=== PATIENT | female | born 2000 | race Caucasian/White ===

== ENCOUNTER 2019-09-03 16:28 | Emergency (ER) | payer SELFPAY ==
[~2019-09-03] VITALS: Ht 176 cm; Wt 104.7 kg
[2019-09-03 16:40] VITALS: BP 137/59
--- NOTE | 2019-09-03 17:20 | NUR ---
unable to locate heart tones with hand held doppler. Notified Dr Akins.
--- NOTE | 2019-09-03 17:23 | NUR ---
Patient refused blood draw, stating if they could not get an ultrasound she did not want her blood drawn.
--- NOTE | 2019-09-03 17:24 | NUR ---
Patient and family left against medical advice at this time.
--- NOTE | 2019-09-03 17:45 | ED GU-Female ---
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 States is not having bleeding at this time, but had a large amount in the toilet. Is also having lower abdominal cramping. Has had a previous miscarriage. Nursing Sepsis Screen: No Definite Risk History of Present Illness Date Seen by Provider: Sep 03, 2019 Time Seen by Provider: 17:37 Initial Comments 27 year-old female history as above 2 para 0, first ended in a D and E Says last menstrual period was in April she is currently 14 weeks and 3 days she had voided and noticed a significant amount of blood in the toilet has not had further active vaginal bleeding but has had some cramping Allergies and Home Medications Allergies Coded Allergies: Sulfa (Sulfonamide Antibiotics) (Verified Allergy, Unknown, 09/03/19) amoxicillin (Verified Allergy, Unknown, 09/03/19) clavulanic acid (Verified Allergy, Unknown, 09/03/19) sulfamethoxazole (Verified Allergy, Unknown, 09/03/19) trimethoprim (Verified Allergy, Unknown, 09/03/19) Patient Home Medication List Home Medication List Reviewed: Yes Review of Systems Review of Systems Constitutional: No fever EENTM: no symptoms reported Respiratory: no symptoms reported Cardiovascular: no symptoms reported Gastrointestinal: other (some pelvic cramping) Genitourinary: denies dysuria; other (see HPI) : Yes Musculoskeletal: no symptoms reported Skin: no symptoms reported Past Lcfduwn-Ivgcob-Pzqvic Hx Patient Social History Recent Foreign Travel: No Contact w/Someone Who Travel: No Recent Infectious Disease Expo: No Physical Exam Vital Signs Vital Signs - First Documented 09/03/19 16:40 Temp 37.1 Pulse 85 Resp 16 B/P (MAP) 137/59 (85) Pulse Ox 85 Capillary Refill : Less Than 3 Seconds Height, Weight, BMI Height: '" Weight: lbs. oz. kg; 33.00 BMI Method: General Appearance: no apparent distress HEENT: PERRL/EOMI Neck: supple Cardiovascular: regular rate, rhythm Respiratory: normal breath sounds Gastrointestinal: non tender, soft Progress/Results/Core Measures Suspected Sepsis Recent Fever Within 48 Hours: No Infection Criteria Present: None New/Unexplained Altered Menta: No Sepsis Screen: No Definite Risk SIRS Temperature: Pulse: 85 Respiratory Rate: 16 Blood Pressure 137 /59 Mean: 85 Results/Orders My Orders Orders - SOFÍA OCASIO MD Heart Tones (09/03/19 16:51) Hcg,Quantitative (09/03/19 16:51) Cbc With Automated Diff (09/03/19 16:51) Abo Rh Type (09/03/19 16:51) Vital Signs/I&O 09/03/19 16:40 Temp 37.1 Pulse 85 Resp 16 B/P (MAP) 137/59 (85) Pulse Ox 85 Capillary Refill : Less Than 3 Seconds Blood Pressure Mean: 85 Diagnostic Imaging Comments Using a small portable device to check for heart tones the nurse was not able to locate any Formal sonography through radiology is not available at this time Small sono on wheels is in the department though I have not use this device before The fetus was visualized but cardiac activity was not identified with certainty At this point the patient and family opted to leave this facility and 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 Referrals: [facility] (PCP) Primary Care Physician SOFÍA OCASIO MD Sep 03, 2019 17:45
== END 2019-09-03 17:30 | disposition left against medical advice (07) ==
LOC: ER FS 16:30
DX: O20.0 Threatened abortion (principal); Z3A.14 14 weeks gestation of pregnancy; Z88.2 Allergy status to sulfonamides; Z88.0 Allergy status to penicillin; Z88.1 Allergy status to other antibiotic agents
CPT/HCPCS: 99282

== ENCOUNTER 2020-03-24 12:49 | Emergency (ER) | payer OTHER, BC ==
[~2020-03-24] VITALS: Ht 175.3 cm; Wt 90.9 kg
[2020-03-24 12:50] VITALS: BP 121/69
--- NOTE | 2020-03-24 13:02 | ED Lower Extremity ---
General Chief Complaint: Lower Extremity Stated Complaint: RT FOOT/ANKLE INJ Source: patient, RN/MD, RN notes reviewed Exam Limitations: no limitations History of Present Illness Date Seen by Provider: March 24, 2020 Time Seen by Provider: 12:50 Initial Comments This patient is a 20-year-old female who states that she stepped down a couple steps twisting her right ankle. Patient states it hurts to bear weight. No obvious signs of injury. We'll do medical evaluation treatment is needed Allergies and Home Medications Allergies Coded Allergies: Sulfa (Sulfonamide Antibiotics) (Verified Allergy, Unknown, 09/03/19) amoxicillin (Verified Allergy, Unknown, 09/03/19) clavulanic acid (Verified Allergy, Unknown, 09/03/19) sulfamethoxazole (Verified Allergy, Unknown, 09/03/19) trimethoprim (Verified Allergy, Unknown, 09/03/19) Patient Home Medication List Home Medication List Reviewed: Yes Review of Systems Constitutional: No no symptoms reported; see HPI; No chills, No diaphoresis, No dizziness, No fever, No malaise, No weakness, No weight gain, No weight loss, No other EENTM: No see HPI, No no symptoms reported, No ear discharge, No hearing loss, No ear pain, No blurred vision, No double vision, No eye pain, No tearing, No vision loss, No dental problems, No hoarseness, No mouth pain, No mouth swelling, No epistaxis, No nose congestion, No nose pain, No throat pain, No throat swelling, No other Respiratory: No no symptoms reported, No see HPI, No cough, No dyspnea on exertion, No hemoptysis, No orthopnea, No phlegm, No short of breath, No s tridor, No wheezing, No other Cardiovascular: No no symptoms reported, No see HPI, No chest pain, No edema, No Hx of Intervention, No palpitations, No syncope, No vascular heart diseas, No other Gastrointestinal: No RUQ, No LUQ, No RLQ, No LLQ, No no symptoms reported, No see HPI, No abdominal pain, No constipation, No diarrhea, No dysphagia, No hematemesis, No heartburn, No jaundice, No loss of appetite, No melena, No nausea, No vomiting, No other Musculoskeletal: No no symptoms reported; see HPI; No back pain, No gout; joint pain; No joint swelling, No muscle pain, No muscle stiffness, No muscle cramps, No muscle twitching, No muscle weakness, No neck pain, No other Past Yvalpeb-Kflpph-Dwgwkh Hx Patient Social History Alcohol Use: Denies Use Recreational Drug Use: No Smoking Status: Never a Smoker 2nd Hand Smoke Exposure: No Recent Foreign Travel: No Contact w/Someone Who Travel: No Recent Hopitalizations: No Physical Abuse: No Sexual Abuse: No Mistreated: No Fear: No Seasonal Allergies Seasonal Allergies: No Past Medical History Surgeries: Yes Adenoidectomy, Tonsillectomy Respiratory: No Cardiac: No Neurological: No Genitourinary: No Gastrointestinal: No Musculoskeletal: No Endocrine: No HEENT: No Cancer: No Psychosocial: No Integumentary: No Physical Exam Vital Signs Vital Signs - First Documented 03/24/20 12:50 Temp 36.3 Pulse 83 Resp 16 B/P (MAP) 121/69 (86) Pulse Ox 98 O2 Delivery Room Air Capillary Refill : Height, Weight, BMI Height: '" Weight: lbs. oz. kg; 33.00 BMI Method: General Appearance: WD/WN, no apparent distress HEENT: PERRL/EOMI, normal ENT inspection, TMs normal, pharynx normal Neck: non-tender, full range of motion, supple, normal inspection Cardiovascular: normal peripheral pulses, regular rate, rhythm, no edema, no gallop, no JVD, no murmur Respiratory: chest non-tender, lungs clear, normal breath sounds, no respiratory distress, no accessory muscle use Gastrointestinal: normal bowel sounds, non tender, soft, no organomegaly, no pulsatile mass Ankles: right ankle normal inspection, right ankle limited range of motion, right ankle pain Skin: normal color, warm/dry Progress/Results/Core Measures Results/Orders My Orders Orders - NÉSTOR SO MD Ankle 3 View Right (03/24/20 12:56) Foot 3 View Right (03/24/20 13:14) Vital Signs/I&O 03/24/20 12:50 Temp 36.3 Pulse 83 Resp 16 B/P (MAP) 121/69 (86) Pulse Ox 98 O2 Delivery Room Air Progress Progress Note : Time: 13:31 Progress Note Negative x-rays negative for acute findings. We'll offer the patient an air stirrup/Leroy wrap as needed. Patient needs encourage rest ice elevation compression. Follow-up with PCP in 2-3 days. We'll write patient prescription for diclofenac as needed. For pain Diagnostic Imaging Diagonstic Imaging: Xray Plain Films/CT/US/NM/MRI: ankle Comments Negative for any acute injuries. Reviewed: Reviewed by Me Departure Impression Primary Impression: Sprain and strain of ankle Disposition: HOME, SELF-CARE Condition: Stable Departure-Patient Inst. Decision time for Depature: 13:31 Referrals: [facility] (PCP) Primary Care Physician KRISTINA DE ANDA APRN (Family) Primary Care Physician Patient Instructions: Ankle Sprain (DC) Add. Discharge Instructions: Rest ice compression and elevation. May use Leroy wrap versus Air-Stirrup if needed. Follow up with PCP in 2-3 days. All discharge instructions reviewed with patient and/or family. Voiced understanding. Scripts Diclofenac Sodium (Diclofenac Sodium) 75 Mg Tablet. 75 MG PO BID for 10 Days, #20 TAB 0 Refills Prov: NÉSTOR SO MD 03/24/20 NÉSTOR SO MD March 24, 2020 13:02
--- NOTE | 2020-03-24 13:27 | Diagnostic Imaging Report ---
INDICATION: Pain post fall downstairs TECHNIQUE: Three views of the right ankle CORRELATION STUDY: None FINDINGS: The bony alignment is anatomic. The talar dome is intact. The ankle mortise is maintained. There is no acute fracture or dislocation. Soft tissues are unremarkable. IMPRESSION: Negative for acute bony abnormality of the ankle. Dictated by: Dictated on workstation # [id number]
[2020-03-24] MEDS ORDERED: DICL75TA2 PO (13:32)
--- NOTE | 2020-03-24 13:35 | Diagnostic Imaging Report ---
INDICATION: Pain post fall downstairs today. TECHNIQUE: 3 views of the right foot CORRELATION STUDY: None FINDINGS: The osseous structures of the foot are intact. Joint spaces are maintained. Alignment anatomic. Soft tissues appearing unremarkable. IMPRESSION: 1. Negative for acute findings of the foot. Dictated by: Dictated on workstation # [id number]
--- OUTSIDE RECORDS SUMMARY | 2020-03-24 15:52 | XMS REPORT | Continuity of Care Document ---
Author Organization Unknown Address Unknown Phone Unavailable Allergies Active Description Code Type Severity Reaction Onset Reported/Identified Relationship to Patient Clinical Status Yes amoxicillin [id number] Drug Aller gy Unknown N/A 09/03/2019 Yes clavulanic acid [id number] D rug Allergy Unknown N/A 09/03/2019 Yes Sulfa (Sulfonamide Antibiotics) [id number] Drug Allergy Unknown N/A 019 Yes sulfamethoxazole [id number] Drug Allergy Unknown N/A 09/03/2019 Yes trimethoprim [id number] Drug Allergy Unknown N/A 09/03/2019 Medications There is no data. Problems Date Dx Coded Attending Type Code Diagnosis Diagnosed By 09/03/2019 SOFÍA OCAISO MD Ot N93. 9 ABNORMAL UTERINE AND VAGINAL BLEEDING, U 09/03/2019 SOFÍA OCASIO MD Ot O20. 0 THREATENED 09/03/2019 SOFÍA OCASIO MD Ot Z3A. 14 14 WEEKS GESTATION OF 09/03/2019 SOFÍA OCASIO MD Ot Z88. 0 ALLERGY STATUS TO PENICILLIN 09/03/2019 SOFÍA OCASIO MD Ot Z88. 1 ALLERGY STATUS TO OTHER ANTIBIOTIC AGENT 09/03/2019 SOFÍA OCASIO MD Ot Z88. 2 ALLERGY STATUS TO SULFONAMIDES STATUS 09/08/2019 SOFÍA OCASIO MD Ot N93. 9 ABNORMAL UTERINE AND VAGINAL BLEEDING, U 09/08/2019 SOFÍA OCASIO MD Ot O20. 0 THREATENED 09/08/2019 SOFÍA OCASIO MD Ot Z3A. 14 14 WEEKS GESTATION OF 09/08/2019 SOFÍA OCASIO MD Ot Z88. 0 ALLERGY STATUS TO PENICILLIN 09/08/2019 SOFÍA OCASIO MD Ot Z88. 1 ALLERGY STATUS TO OTHER ANTIBIOTIC AGENT 09/08/2019 SOFÍA OCASIO MD Ot Z88. 2 ALLERGY STATUS TO SULFONAMIDES STATUS 09/09/2019 SOFÍA OCASIO MD Ot N93. 9 ABNORMAL UTERINE AND VAGINAL BLEEDING, U 09/09/2019 SOFÍA OCASIO MD, Ot O20. 0 THREATENED 09/09/2019 SOFÍA OCASIO MD, Ot Z3A. 14 14 WEEKS GESTATION OF 09/09/2019 SOFÍA OCASIO MD, Ot Z88. 0 ALLERGY STATUS TO PENICILLIN 09/09/2019 SOFÍA OCASIO MD, Ot Z88. 1 ALLERGY STATUS TO OTHER ANTIBIOTIC AGENT 09/09/2019 SOFÍA OCASIO MD, Ot Z88. 2 ALLERGY STATUS TO SULFONAMIDES STATUS Procedures There is no data. Results Test Result Range TSH w/ FREE T4 - 01/27/19 17:20 TSH 1.25 mIU/L NRG T4, FREE 1.0 ng/dL 0.8-1.4 CMP - 01/27/19 17:20 GLUCOSE 91 mg/dL 65-99 UREA NITROGEN (BUN) 10 mg/dL 7-20 CREATININE 0.72 mg/dL 0.50-1.00 eGFR NON-AFR. MAURITANIAN 121 mL/min/1.73m2 > OR = 60 eGFR 141 mL/min/1.73m2 > OR = 60 BUN/CREATININE RATIO NOT APPLICABLE (calc) 6-22 SODIUM 140 mmol/L 135-146 POTASSIUM 3.6 mmol/L 3.8-5.1 CHLORIDE 108 mmol/L 98-110 CARBON DIOXIDE 23 mmol/L 20-32 CALCIUM 9.5 mg/dL 8.9-10.4 PROTEIN, TOTAL 7.5 g/dL 6.3-8.2 ALBUMIN 4.9 g/dL 3.6-5.1 GLOBULIN 2.6 g/dL (calc) 2.0-3.8 ALBUMIN/GLOBULIN RATIO 1.9 (calc) 1.0-2. 5 BILIRUBIN, TOTAL 0.3 mg/dL 0.2-1.1 ALKALINE PHOSPHATASE 70 U/L 47-176 AST 20 U/L 12-32 ALT 24 U/L 5-32 HCG, QUANTITATIVE - 01/27/19 17:20 HCG, TOTAL, QN <2 mIU/mL NRG EXTRA LAVENDER-TOP TUBE - 01/27/19 17:20 EXTRA LAVENDER-TOP TUBE NRG CULTURE, URINE - 05/12/19 14:57 CULTURE, URINE, ROUTINE SEE NOTE NRG HIV ANTIGEN/ANTIBODY - 05/15/19 12:11 HIV AG/AB, 4TH GEN NON-REACTIVE NON-DACIA CTIVE SYPHILIS (RPR W/ REFLEX CONFIRMATION) - 05/15/19 12:11 RPR (DX) W/REFL TITER AND CONFIRMATORY TESTING NON-REACTIVE NON-REACTIVE HEP C ANTIBODY - 05/15/19 12:11 HEPATITIS C ANTIBODY NON-REACTIVE NON-R EACTIVE SIGNAL TO CUT-OFF 0.03 <1.00 GC/CHLAMYDIA (SWAB OR URINE)-RAPID - 03/29 12:23 CHLAMYDIA TRACHOMATIS RNA, TMA DETECTED NOT DETECTED NEISSERIA GONORRHOEAE RNA, TMA NOT DETECTED NOT DETECTED COMMENT NRG GC/CHLAMYDIA (SWAB OR URINE)-RAPID - 09:45 CHLAMYDIA TRACHOMATIS RNA, TMA NOT DETECTED NOT DETECTED NEISSERIA GONORRHOEAE RNA, TMA NOT DETECTED NOT DETECTED COMMENT NRG TSH - 06/18/19 15:30 TSH 1.34 mIU/L NRG CBC - 08/18/19 09:23 WHITE BLOOD CELL COUNT 6.8 Thousand/uL 3 .8-10.8 RED BLOOD CELL COUNT 4.58 Million/uL 3.8 0-5.10 HEMOGLOBIN 12.7 g/dL 11.7-15.5 HEMATOCRIT 37.7 % 35.0-45.0 MCV 82.3 fL 80.0-100.0 MCH 27.7 pg 27.0-33.0 MCHC 33.7 g/dL 32.0-36.0 RDW 13.9 % 11.0-15.0 PLATELET COUNT 274 Thousand/uL 140-400 MPV 10.5 fL 7.5-12.5 ABSOLUTE NEUTROPHILS 4889 cells/uL 1500- 7800 ABSOLUTE LYMPHOCYTES 1550 cells/uL 850-3 900 ABSOLUTE MONOCYTES 326 cells/uL 200-950 ABSOLUTE EOSINOPHILS 27 cells/uL 15-500 ABSOLUTE BASOPHILS 7 cells/uL 0-200 NEUTROPHILS 71.9 % NRG LYMPHOCYTES 22.8 % NRG MONOCYTES 4.8 % NRG EOSINOPHILS 0.4 % NRG BASOPHILS 0.1 % NRG UA W/ MICROSCOPY - 08/18/19 09:23 COLOR TNP NRG CULTURE, URINE - 08/18/19 09:23 CULTURE, URINE, ROUTINE SEE NOTE NRG CULTURE, URINE - 12/01/19 16:47 CULTURE, URINE, ROUTINE SEE NOTE NRG Encounters ACCT No. Visit Date/Time Discharge Status Pt. Type Provider Facility Loc./Unit Complaint [id number] 08/18/2019 08:40:00 08/18/2019 23:59: [address] [facility] [id number] 12/01/2019 16:00:00 Document Registration [id number] 08/18/2019 08:40:00 Document Registration [id number] 06/18/2019 16:00:00 Document Registration [id number] 06/08/2019 10:00:00 Document Registration [id number] 05/15/2019 11:30:00 Document Registration [id number] 05/12/2019 14:20:00 Document Registration [id number] 01/27/2019 17:20:00 Document Registration [id number] 01/27/2019 16:20:00 Document Registration [id number] 09/03/2019 16:30:00 17:30:00 DIS Outpatient AMARJIT MERCER, SOFÍA Louise [facility] ER FS VAGINAL BLEEDING,CRAMPI NG, 14 WEEKS
== END 2020-03-24 13:43 | disposition home or self-care (01) ==
LOC: EDUNIT# 12:49 → ER FS 12:51
DX: S93.401A Sprain of unspecified ligament of right ankle, initial encounter (principal); S96.911A Strain of unspecified muscle and tendon at ankle and foot level, right foot, initial encounter; Z88.2 Allergy status to sulfonamides; Z88.1 Allergy status to other antibiotic agents; Z88.0 Allergy status to penicillin; X50.1XXA Overexertion from prolonged static or awkward postures, initial encounter
CPT/HCPCS: 73610; 73630

== ENCOUNTER → 2021-07-03 | Outpatient (CLI) | payer OTHER, BC ==
[~2021-07-03] MED LIST: DICL75TA2 PO
== END ==
LOC: LABNPT 15:00
PROVIDERS: ATTEND Family Medicine
DX: Z11.3 Encounter for screening for infections with a predominantly sexual mode of transmission (principal)
CPT/HCPCS: 87210; 87491; 87591